=== PATIENT | female | born 1970 | race African-American/Black ===

== ENCOUNTER 2020-08-06 20:04 | Emergency (ER) | payer OTHER ==
[~2020-08-06] VITALS: Ht 165.1 cm; Wt 90.7 kg
[2020-08-06] MEDS ORDERED: SODIUM CHLORIDE 0.9% 1000ML 1,000 ML IV STA (20:42)
[2020-08-06] MEDS ORDERED: LABETALOL HCL 5 MG/ML 20ML VIAL IV STA (20:42)
[2020-08-06] MEDS ORDERED: SODIUM CHLORIDE 0.9% 1000ML 1,000 ML ONE (20:57)
[2020-08-06 21:35] LABS: ALANINE AMINOTRANSFERASE 13 IU/L (0-55); ALBUMIN 4.1 g/dL (3.5-5.0); ALKALINE PHOSPHATASE 99 IU/L (40-150); ANION GAP 14.9 mmol/L (8-16); BLOOD UREA NITROGEN 22 mg/dL (7-26); BUN/CREATININE RATIO 19 (6-25); CALCIUM 9.2 mg/dL (8.4-10.2); CARBON DIOXIDE 24 mmol/L (22-29); CHLORIDE 103 mmol/L (98-107); CREATININE, SERUM 1.13 mg/dL (0.57-1.11); EST GLOMERULAR FILTRATION RATE > 60 ML/MIN (60-); GLUCOSE 139 mg/dL (74-118); POTASSIUM 3.9 mmol/L (3.5-5.1); SODIUM 138 mmol/L (136-145)
[2020-08-06] MEDS ORDERED: LOSARTAN POTASS25 MG PO (21:45)
[2020-08-06] MEDS ORDERED: ATENOLOL50 MG PO (21:45)
[2020-08-06] MEDS ORDERED: CLONIDINE HCL 0.1 MG TAB PO ONE (21:45)
[2020-08-06] MEDS ORDERED: CLONIDINE HCL 0.1 MG TAB ONE (21:55)
== END 2020-08-06 22:45 | disposition home or self-care (01) ==
LOC: FSED 20:34
DX: R00.0 Tachycardia, unspecified (principal); R42 Dizziness and giddiness; I10 Essential (primary) hypertension
CPT/HCPCS: 36415; 71046; 80048; 80053; 81003; 82553; 84484; 85025; 93005; 99284; J7030; U0002